=== PATIENT | female | born 1990 | race Caucasian/White ===

== ENCOUNTER 2017-02-13 23:13 | Emergency (ER) | payer OTHER, BC ==
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
== END 2017-02-14 00:49 | disposition disaster alternative care site (69) ==
LOC: GACC 23:13
DX: M54.2 Cervicalgia (principal); F41.9 Anxiety disorder, unspecified; Z98.890 Other specified postprocedural states; W19.XXXA Unspecified fall, initial encounter
CPT/HCPCS: Q9967